=== PATIENT | female | born 1945 | race Caucasian/White ===

== ENCOUNTER 2017-07-15 19:35 | Emergency (ER) | payer OTHER, MEDICARE ==
[2017-07-15] MEDS ORDERED: HYDROcodone/Acetaminophen 10/325 mg Tablet ONE (20:01)
[2017-07-15] MEDS ORDERED: Amoxicillin/Potassium Clav 875 MG TAB ONE (20:01)
== END 2017-07-15 20:06 | disposition home or self-care (01) ==
LOC: MADERS 19:35
DX: S51.852A Open bite of left forearm, initial encounter (principal); E03.9 Hypothyroidism, unspecified; I10 Essential (primary) hypertension; W54.0XXA Bitten by dog, initial encounter
CPT/HCPCS: 99283